=== PATIENT | male | born 1955 | race Caucasian/White ===

== ENCOUNTER 2020-01-06 19:00 | Emergency (ER) | payer MEDICARE, SELFPAY ==
[2020-01-06 19:03] VITALS: BP 178/89; PULSE 74; RESP 16; TEMP 37.2; O2SAT 98; BMI 30.1
--- NOTE | 2020-01-06 19:07 | CTR_ITS ---
PROCEDURE INFORMATION: Exam: CT Head Without Contrast Exam date and time: 01/06/2020 7:39 PM Age: 64 years old Clinical indication: Injury or trauma; Injury history: Hit in head by tree limb; Initial encounter; Blunt trauma (contusions or hematomas); Additional info: Head injury TECHNIQUE: Imaging protocol: Computed tomography of the head without contrast. Radiation optimization: All CT scans at this facility use at least one of these dose optimization techniques: automated exposure control; mA and/or kV adjustment per patient size (includes targeted exams where dose is matched to clinical indication); or iterative reconstruction. COMPARISON: No relevant prior studies available. FINDINGS: There are moderate intracranial arterial calcifications. Evaluation of the brain demonstrates no other areas of abnormal density. Size of ventricular system appears within normal limits for the patient's stated age. No depressed calvarial fracture is demonstrated. Visualized paranasal sinuses and mastoid air cells demonstrate no significant opacification. CT/CT head wo con* [id number] IMPRESSION: No acute intracranial process is demonstrated. Total DLP: 857.38 mGy-cm Radiation Dose CTDIVOL = (mGy): DLP = 857.38 (mGy-cm)
--- NOTE | 2020-01-06 19:07 | CTR_ITS ---
PROCEDURE INFORMATION: Exam: CT Cervical Spine Without Contrast Exam date and time: 01/06/2020 7:39 PM Age: 64 years old Clinical indication: Injury or trauma; Injury history: Tree limb fell on head; Initial encounter; Blunt trauma TECHNIQUE: Imaging protocol: Computed tomography images of the cervical spine without contrast. Radiation optimization: All CT scans at this facility use at least one of these dose optimization techniques: automated exposure control; mA and/or kV adjustment per patient size (includes targeted exams where dose is matched to clinical indication); or iterative reconstruction. COMPARISON: No relevant prior studies available. FINDINGS: Alignment of cervical bodies appears within normal limits. Height of cervical bodies appears within normal limits. Straightening of the cervical spine may be due to muscle spasm. There are moderate multilevel degenerative changes in the cervical spine. There appears to be spinal canal narrowing. Further assessment cannot be made of the cervical spinal canal or its contents due to artifacts. No convincing acute fracure is demonstrated when allowing for the degenerative changes. Consider MRI of cervical spine for further assessment if clinically warranted, particularly for further assessment of the spinal canal and its contents, spinal cord, nerve roots, intervertebral disks, ligaments, other spinal soft tissues, bone edema, etc., if patient has no contraindication to MRI. There are moderate to prominent calcifications at each CCA bifurcation, consider further imaging to assess for carotid stenosis. CT/CT cervical spin wo con* [id number] IMPRESSION: No convincing acute fracture is demonstrated when allowing for moderate degenerative changes as discussed above. Total DLP: 744.75 mGy-cm Radiation Dose CTDIVOL = (mGy): DLP = 744.75 (mGy-cm)
--- NOTE | 2020-01-06 19:09 | W.ED.TRAUMA ---
HPI - Trauma General: Chief Complaint: Trauma Stated Complaint: head injury Time Seen by Provider: 01/06/20 19:08 History of Present Illness: HPI narrative: Patient is a 64-year-old male who comes to the ED after head injury. Patient says he was working outside riding his tractor when a tree branch fell and hit him in his head. He describes the tree branch then hit his head has been approximately around 12 to 15 cm in diameter and it contained no forms. He denies any loss of consciousness, nausea/vomiting, headache, vision changes and weakness/ numbness tingling to extremities. Patient says his head hurts where this laceration is at. He also says he is having some neck pain when he moves it. Patient also has some superficial abrasions on his chest due to branch scratching skin. Patient had his tetanus shot within the last 5 years. Associated symptoms: Denies abdominal pain, back pain, chest pain, chills, fever(s), headache(s), nausea or vomiting Review of Systems Const: Denies: fever(s), chills or fatigue Eyes: Denies: change in vision or eye discomfort ENMT: Denies: throat pain, odynophagia, nasal discharge or nasal congestion Card: Denies: chest pain, palpitations, edema, swelling of feet/ankles, dyspnea on exertion or orthopnea Resp: Denies: dyspnea, productive cough or non-productive cough GI: Denies: abdominal pain, nausea, vomiting, diarrhea, constipation or hematochezia : Denies: flank pain, difficulty urinating, dysuria or hematuria Musc: Reports: neck pain; Denies: back pain or extremity swelling Skin/Breast: Reports: new lesions (laceration on right parietal area of skull); Denies: rash Neuro: Denies: headache(s), numbness in extremities or weakness in extremities PFS ED PFSH: Social History Smoking and tobacco status: former smoker Alcohol intake: current Physical Exam Const: COMMON NORMALS: no acute distress, patient oriented x3, healthy appearing and alert GENERAL APPEARANCE: cooperative and comfortable HENMT: COMMON NORMALS: normocephalic HEAD & SCALP: normocephalic, laceration right parietal Details of head laceration: linear, superficial and sensation intact; not actively bleeding, not pulsatile bleeding and not contaminated Head laceration size: 3.5 cm and scalp tenderness (tender over laceration); no Hernandez's sign, no palpable skull fracture and no raccoon eyes MOUTH: Normal oral and palatal mucosa present THROAT: posterior oropharynx normal and uvula midline Eye: COMMON NORMALS: Equal, round and reactive pupils present, EOMs intact bilaterally and conjunctivae normal CONJUNCTIVA: Yes conjunctivae normal PUPIL: Yes Equal, round and reactive pupils present Neck/C-Spine: COMMON NORMALS: supple GENERAL: Yes normal visual inspection CERVICAL SPINE: No Cervical spine tenderness, No Paracervical muscle tenderness and Yes collar present (unable to assess ROM due to C-Collar) OTHER: Patient was wearing c-collar when I entered the room. Resp: COMMON NORMALS: normal respiratory effort, No retractions, No use of accessory muscles and clear to auscultation bilaterally AUSCULTATION: clear to auscultation bilaterally Cardio: COMMON NORMALS: regular rate, regular rhythm, S1 normal heart sound present, S2 normal heart sound present, No gallops present (Cardio), No clicks present (Cardio), No murmurs present (Cardio) and Peripheral pulses 2+ throughout RATE: regular rate RHYTHM: regular rhythm HEART SOUNDS: S1 normal heart sound present and S2 normal heart sound present PERIPHERAL PULSES: Peripheral pulses 2+ throughout GI: COMMON NORMALS: Normal to inspection, nondistended, normoactive bowel sounds present, Soft to palpation, non-tender and no masses PALPATION: Yes Soft to palpation : COMMON NORMALS: Yes no CVA tenderness BLADDER/KIDNEY EXAM: Yes no CVA tenderness Back/Pelvis: COMMON NORMALS: no CVA tenderness Extremity: COMMON NORMALS: normal to inspection and no pedal edema Neuro: COMMON NORMALS: patient oriented x3, CN's II-XII intact bilaterally, moves all extremities, no focal motor deficits and no sensory deficits noted SENSORIUM/ORIENTATION: Yes alert SENSORY EXAM: Yes extremities (intact) MOTOR EXAM: 5/5 motor strength present throughout Skin: TRAUMA: abrasion (superficial abrasion on Right chest) Procedures Laceration Laceration 1: Site: scalp Side (If applicable): right Size (cm): 3.5 Description: linear and clean Depth: simple, single layer Local Anesthetic: lidocaine 1% and with epi Amount of anesthesia used (mL): 10 Pre-repair: irrigated extensively (with normal saline and cleaned with alcohol swab) Skin layer closed with: other ([place]) Number of sutures: 6 ([place]) Technique: other (Eduardo) MDM - Trauma MDM Narrative: Medical decision making narrative: Patient is a 64-year-old male who comes to the ED with laceration on the scalp after a tree branch fell and hit head. CT of head showed no acute findings and CT of cervical spine showed no acute fractures. Laceration on scalp was cleaned and irrigated with normal saline and also wiped with alcohol swab. Local lidocaine 1% with epi was used and 6 eduardo were placed on laceration to close it up. Patient was discharged and told to follow-up with PCP in 7 to 10 days to get eduardo removed. I told patient he can take ibuprofen or Tylenol for any headaches or pain. Patient understood and agreed with plan. Imaging Data^: CT Head: Attestation: I personally reviewed and interpreted this imaging study as follows: Radiologist's impression: [place] [address] CT Scan Report Signed Patient: Benjamin Velasco Unit #: [id number] : 1955 Age/Sex: 64 / M ADM Date: 01/06/20 Loc: ER Room/Bed: Attending Dr: Ordering Provider/Ordering MD: Elsie Oh MD Date of Service: 01/06/20 Procedure(s): CT head wo con* [id number] Accession Number(s): [id number] Report Number: [id number] PROCEDURE INFORMATION: Exam: CT Head Without Contrast Exam date and time: 01/06/2020 7:39 PM Age: 64 years old Clinical indication: Injury or trauma; Injury history: Hit in head by tree limb; Initial encounter; Blunt trauma (contusions or hematomas); Additional info: Head injury TECHNIQUE: Imaging protocol: Computed tomography of the head without contrast. Radiation optimization: All CT scans at this facility use at least one of these dose optimization techniques: automated exposure control; mA and/or kV adjustment per patient size (includes targeted exams where dose is matched to clinical indication); or iterative reconstruction. COMPARISON: No relevant prior studies available. FINDINGS: There are moderate intracranial arterial calcifications. Evaluation of the brain demonstrates no other areas of abnormal density. Size of ventricular system appears within normal limits for the patient's stated age. No depressed calvarial fracture is demonstrated. Visualized paranasal sinuses and mastoid air cells demonstrate no significant opacification. CT/CT head wo con* [id number] IMPRESSION: No acute intracranial process is demonstrated. Total DLP: 857.38 mGy-cm Radiation Dose CTDIVOL = (mGy): DLP = 857.38 (mGy-cm) Dictated By: Montana Dee MD Signed By: Montana Dee MD Signed Date/Time: 01/06/202013 DD/ [address]: Attestation: I personally reviewed and interpreted this imaging study as follows: Radiologist's impression: [address] [address] [address] Scan Report Signed Patient: Benjamin Velasco Unit #: [id number] : 1955 Age/Sex: 64 / M ADM Date: 01/06/20 Loc: ER Room/Bed: Attending Dr: Ordering Provider/Ordering MD: Elsie Oh MD Date of Service: 01/06/20 Procedure(s): CT cervical spin wo con* [id number] Accession Number(s): [id number] Report Number: [id number] PROCEDURE INFORMATION: Exam: CT Cervical Spine Without Contrast Exam date and time: 01/06/2020 7:39 PM Age: 64 years old Clinical indication: Injury or trauma; Injury history: Tree limb fell on head; Initial encounter; Blunt trauma TECHNIQUE: Imaging protocol: Computed tomography images of the cervical spine without contrast. Radiation optimization: All CT scans at this facility use at least one of these dose optimization techniques: automated exposure control; mA and/or kV adjustment per patient size (includes targeted exams where dose is matched to clinical indication); or iterative reconstruction. COMPARISON: No relevant prior studies available. FINDINGS: Alignment of cervical bodies appears within normal limits. Height of cervical bodies appears within normal limits. Straightening of the cervical spine may be due to muscle spasm. There are moderate multilevel degenerative changes in the cervical spine. There appears to be spinal canal narrowing. Further assessment cannot be made of the cervical spinal canal or its contents due to artifacts. No convincing acute fracure is demonstrated when allowing for the degenerative changes. Consider MRI of cervical spine for further assessment if clinically warranted, particularly for further assessment of the spinal canal and its contents, spinal cord, nerve roots, intervertebral disks, ligaments, other spinal soft tissues, bone edema, etc., if patient has no contraindication to MRI. There are moderate to prominent calcifications at each CCA bifurcation, consider further imaging to assess for carotid stenosis. CT/CT cervical spin wo con* [id number] IMPRESSION: No convincing acute fracture is demonstrated when allowing for moderate degenerative changes as discussed above. Total DLP: 744.75 mGy-cm Radiation Dose CTDIVOL = (mGy): DLP = 744.75 (mGy-cm) Dictated By: Montana Dee MD Signed By: Montana Dee MD Signed Date/Time: 01/06/202019 DD/ 17 Discharge Plan Discharge Patient Disposition: Home, Self-Care Clinical Impression: Scalp laceration Qualifiers: Encounter type: initial encounter Qualified Code(s): S01.01XA - Laceration without foreign body of scalp, initial encounter Condition: Stable Prescriptions: No Action levothyroxine 75 mcg capsule 125 mcg PO DAILY RF: 0 amlodipine 5 mg tablet 5 mg PO DAILY RF: 0 metoprolol tartrate 25 mg tablet 12.5 mg PO BID RF: 0 Discharge Orders: Discharge Order (Routine); Ordered 01/06/20 Ordered By: Garland Montero Referrals: Radu Kilpatrick [Primary Care Provider] - Discharge Diet: Regular Discharge Activity: Resume usual activity Patient Instructions: Scalp Laceration, Staple Care (ED) Activity Restrictions/Additional Instructions: Leave laceration site dry for the next 24 hours. After that you can wipe area with warm soapy water. Follow-up with PCP to get eduardo removed in 7 to 10 days. Take ibuprofen or Tylenol for pain. You can also apply an ice cold pack for swelling. Watch for signs of infection such as redness, warmth, puslike drainage or increasing tenderness around laceration site. If laceration starts showing the signs return to ED, urgent care or PCP to be prescribed some antibiotics. 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
[2020-01-06 21:51] VITALS: BP 142/62; PULSE 68; RESP 18; O2SAT 97
== END 2020-01-06 22:22 | disposition home or self-care (01) ==
PROVIDERS: Emergency Provider Physician Assistant; PCP Family Medicine
DX: S01.01XA Laceration without foreign body of scalp, initial encounter (principal); W20.8XXA Other cause of strike by thrown, projected or falling object, initial encounter; Z87.891 Personal history of nicotine dependence
CPT/HCPCS: 12002; 12345; 70450; 72125; 99282